=== PATIENT | female | born 1975 | race Caucasian/White ===

== ENCOUNTER → 2018-03-27 18:37 | Outpatient (CLI) | payer OTHER ==
[2016-04-02 08:02] VITALS: BMI 26.5
[~2018-03-27 18:37] MED LIST: HYDROCODON-ACE1 EAC7 PO; IBUPROFEN600 MG PO; PRENATAL COMPLE1 TAB PO
== END | disposition home or self-care (01) ==
LOC: D.MAMMO 13:30
DX: Z12.31 Encounter for screening mammogram for malignant neoplasm of breast (principal)

== ENCOUNTER → 2018-05-15 18:31 | Outpatient (CLI) | payer OTHER ==
[2016-04-02 08:02] VITALS: BMI 26.5
== END | disposition home or self-care (01) ==
LOC: D.MAMMO 04-24 10:00
DX: R92.8 Other abnormal and inconclusive findings on diagnostic imaging of breast (principal)

== ENCOUNTER → 2019-04-17 11:30 | Outpatient (CLI) | payer OTHER ==
[2016-04-02 08:02] VITALS: BMI 26.5
== END | disposition home or self-care (01) ==
LOC: D.MAMMO 11:30
PROVIDERS: ATTEND Clinical Nurse Specialist Adult Health
DX: Z12.31 Encounter for screening mammogram for malignant neoplasm of breast (principal)